=== PATIENT | male | born 2000 | race Caucasian/White ===

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

== ENCOUNTER 2019-06-11 08:07 | Emergency (ER) | payer MEDICAID | END 2019-06-11 09:10 | disposition home or self-care (01) | LOC: SED 08:07 | DX: G44.209 Tension-type headache, unspecified, not intractable (principal) | CPT/HCPCS: 99283 ==

== ENCOUNTER 2019-09-10 10:26 | Emergency (ER) | payer MEDICAID ==
[~2019-09-10] VITALS: Ht 177.8 cm; Wt 54.4 kg
[2019-09-10 10:40] VITALS: BP_SYST 136
--- NOTE | 2019-09-10 10:46 | NUR ---
PATIENT TO WAITING ROOM, STABLE; UNCHANGED
--- NOTE | 2019-09-10 11:30 | NUR ---
Patient to ER bed 7 to gown for evaluation. Side rails up. Report given to Wil BAHENA.
--- NOTE | 2019-09-10 11:40 | NUR ---
ER at bedside examining patient.
--- NOTE | 2019-09-10 12:00 | NUR ---
PT RESTING IN [facility] NO DISTRESS AT THIS TIME VSS
[2019-09-10 12:46] VITALS: BP_SYST 136
--- NOTE | 2019-09-10 12:46 | NUR ---
Patient given written and verbal discharge instructions and verbalizes understanding. ER MD discussed with patient the results and treatment provided. Patient in stable condition. ID arm band removed. Rx of MAGIC MOUTHWASH given. Patient educated on pain management and to follow up with PMD. Pain Scale 0. Opportunity for questions provided and answered. Medication side effect fact sheet provided.
== END 2019-09-10 12:46 | disposition home or self-care (01) ==
LOC: SED 10:26
DX: A69.1 Other Vincent's infections (principal)
CPT/HCPCS: 99283